=== PATIENT | female | born 1995 | race Caucasian/White ===

== ENCOUNTER 2017-03-23 20:40 | Emergency (ER) | payer BC ==
[2017-03-23 20:54] VITALS: BP 131/71
[2017-03-23] MEDS ORDERED: Cephalexin CAP* 500 MG PO ONE (21:02)
--- NOTE | 2017-03-23 21:18 | UC ---
Skin Complaint HPI - HPI Summary HPI Summary: DEVELOPED PIMPLE ABOVE LEFT EAR. TRIED TO POP IT, NOW IT IS GETTING RED AND TENDER AND GROWNING. LYMPHNODE ENLARGING BEHIND EAR TODAY. NO FEVER. NO DISCHARGE. - History of Current Complaint Chief Complaint: UCSkin Time Seen by Provider: 03/23/17 20:42 Stated Complaint: LESION BEHIND LEFT EAR Hx Obtained From: Patient Hx Last Menstrual Period: 02/18/17 Onset/Duration: Gradual Onset, Lasting Days, Still Present Skin Exposure Onset/Duration: Days Ago Onset Severity: Mild Current Severity: Moderate Location: Discrete - LEFT SCALP SUPERIOR TO LEFT EAR Character: Swelling, Redness, Raised, Painful Aggravating Factor(s): Nothing Alleviating Factor(s): Nothing Associated Signs & Symptoms: Positive: Tenderness, Red Streaks. Negative: Fever , Chills, Throat Tightening, Drainage Related History: Possible Reaction to: Environmental Exposure - Allergy/Home Medications Allergies/Adverse Reactions: Allergies Allergy/AdvReac Type Severity Reaction Status Date / Time Amoxicillin [From Augmentin] Allergy Nausea And Verified 03/23/17 20:54 Vomiting Clavulanic Acid Allergy Nausea And Verified 03/23/17 20:54 [From Augmentin] Vomiting Review of Systems Constitutional: Negative Skin: Other - ERYTHEMATOUS INDURATED AREA LEFT SCALP SUPERIOR TO LEFT EAR Eyes: Negative ENT: Negative Respiratory: Negative Cardiovascular: Negative Gastrointestinal: Negative Genitourinary: Negative Motor: Negative Neurovascular: Negative Musculoskeletal: Negative Neurological: Negative Psychological: Negative Is Patient Immunocompromised?: No All Other Systems Reviewed And Are Negative: Yes PMH/Surg Hx/FS Hx/Imm Hx Previously Healthy: Yes - Surgical History Surgical History: Yes Surgery Procedure, Year, and Place: SINUS SURGERY. T&A - Family History Known Family History: Positive: None - Social History Occupation: Student Lives: With Family Alcohol Use: Occasionally Substance Use Type: None Smoking Status (MU): Never Smoked Tobacco - Immunization History Most Recent Influenza Vaccination: JAN 2017 Physical Exam Triage Information Reviewed: Yes Appearance: Well-Appearing, No Pain Distress, Well-Nourished Vital Signs: Initial Vital Signs Temp 98.6 F 03/23/17 20:51 Pulse 79 03/23/17 20:51 Resp 16 03/23/17 20:51 BP 131/71 03/23/17 20:51 Pulse Ox 98 03/23/17 20:51 Vital Signs Reviewed: Yes Eye Exam: Normal ENT Exam: Normal ENT: Positive: Normal ENT inspection, Hearing grossly normal, Pharynx normal, TMs normal Dental Exam: Normal Neck: Positive: Supple, Tenderness @ - LMPHNODE POSTERIOR CERVICAL LN, Enlarged Nodes @ - POSTERIOR CERVICAL LN Respiratory Exam: Normal Respiratory: Positive: Chest non-tender, Lungs clear, Normal breath sounds, No respiratory distress, No accessory muscle use Cardiovascular Exam: Normal Cardiovascular: Positive: RRR, No Murmur, Pulses Normal, Brisk Capillary Refill Abdominal Exam: Normal Abdomen Description: Positive: Nontender, No Organomegaly Musculoskeletal Exam: Normal Musculoskeletal: Positive: Strength Intact, ROM Intact, No Edema Neurological Exam: Normal Psychological Exam: Normal Skin: Positive: Other - ERYTHEMATOUS INDURATED AREA LEFT SCALP SUPERIOR TO LEFT EAR Course/Dx - Differential Diagnoses - Skin Complaint Differential Diagnoses: Abscess, Cellulitis - Diagnoses Provider Diagnoses: CELLULITIS LEFT SCALP SUPERIOR TO LEFT EAR; LYMPHADENOPATHY Discharge - Discharge Plan Condition: Stable Disposition: HOME Prescriptions: Cephalexin CAP* [Keflex CAP*] 500 mg PO QID #40 cap Patient Education Materials: Cellulitis (ED), Lymphadenopathy (ED) Referrals: Non Staff,Doctor [Primary Care Provider] -
== END 2017-03-23 21:16 | disposition home or self-care (01) ==
LOC: UCCORT 20:40
DX: L03.811 Cellulitis of head [any part, except face] (principal); R59.1 Generalized enlarged lymph nodes; Z88.1 Allergy status to other antibiotic agents
CPT/HCPCS: 99212; A9270-GY; G0463

== ENCOUNTER 2017-07-26 11:03 | Emergency (ER) | payer BC ==
[2017-07-26 12:05] VITALS: BP 119/70
--- NOTE | 2017-07-26 12:18 | UC ---
Throat Pain/Nasal Leo HPI - HPI Summary HPI Summary: C/O URI symptoms x 3 days with congestion, sore throat, cough with coughing fits at night and some ear congestion. - History of Current Complaint Chief Complaint: UCRespiratory Stated Complaint: ST Hx Obtained From: Patient Hx Last Menstrual Period: 06/28/17 ?: No Onset/Duration: Sudden Onset, Lasting Days - 3, Still Present Severity: Moderate Pain Intensity: 6 Cough: Nonproductive Associated Signs & Symptoms: Positive: Dysphagia, Hoarseness, Nasal Discharge, Fever - Allergies/Home Medications Allergies/Adverse Reactions: Allergies Allergy/AdvReac Type Severity Reaction Status Date / Time MS Amoxicillin Allergy Nausea And Verified 07/26/17 11:56 [From Augmentin] Vomiting MS Clavulanic Acid Allergy Nausea And Verified 07/26/17 11:56 [From Augmentin] Vomiting PMH/Surg Hx/FS Hx/Imm Hx Previously Healthy: Yes - Surgical History Surgical History: Yes Surgery Procedure, Year, and Place: SINUS SURGERY. T&A - Family History Known Family History: Negative: Cardiac Disease, Hypertension, Diabetes - Social History Occupation: Student Lives: Dormitory/Roommates Alcohol Use: Occasionally Substance Use Type: None Smoking Status (MU): Never Smoked Tobacco Have You Smoked in the Last Year: No - Immunization History Most Recent Influenza Vaccination: JAN 2017 Review of Systems Constitutional: Fever ENT: Sore Throat, Ear Ache, Sinus Congestion Respiratory: Cough Is Patient Immunocompromised?: No All Other Systems Reviewed And Are Negative: Yes Physical Exam Triage Information Reviewed: Yes Appearance: No Pain Distress, Well-Nourished, Ill-Appearing Vital Signs: Initial Vital Signs Temp 98.6 F 07/26/17 11:58 Pulse 77 07/26/17 11:58 Resp 16 07/26/17 11:58 BP 119/70 07/26/17 11:58 Pulse Ox 99 07/26/17 11:58 Vital Signs Reviewed: Yes Eyes: Positive: Conjunctiva Clear ENT: Positive: Pharynx normal, Nasal congestion, TMs normal Neck exam: Normal Respiratory: Positive: Wheezing - expiratory wheeze with coughing Cardiovascular Exam: Normal Musculoskeletal Exam: Normal Neurological Exam: Normal Psychological Exam: Normal Skin Exam: Normal Throat Pain/Nasal Course/Dx - Differential Dx/Diagnosis Differential Diagnosis/HQI/PQRI: Pharyngitis, Sinusitis, Tonsillitis, URI Provider Diagnoses: Acute viral URI. Acute bronchospasm Discharge - Sign-Out/Discharge Documenting (check all that apply): Discharge - Discharge Plan Condition: Stable Disposition: HOME Prescriptions: predniSONE TAB* [Deltasone TAB*] 20 mg PO DAILY #18 tab Patient Education Materials: Upper Respiratory Infection (ED), Wheezing (ED), Prednisone (By mouth) Referrals: Non Staff,Doctor [Primary Care Provider] - Additional Instructions: NASAL SPRAYS AND DROPS: Afrin in the PUMP/ MIST bottle (Get generic 12 hours nasal decongestant spray). Tilt your head down and look at the floor while doing a strong sniff with the spray. Decongestant nasal sprays and drops often give dramatic relief from congestion. They are often recommended for patients with sinus infection to assist with sinus drainage. Persons with high blood pressure should consult the doctor before using these nasal sprays. Afrin and Rafael-Synephrine are common [id number] preparations. They should not be used for more than five days, as "rebound" congestion can occur - - the congestion flares as the drug wears off. A way of dealing with this rebound congestion problem is to medicate only one nostril each time, allowing the other nostril to recover from the medicine' s effects. When you no longer need the drug during the day, spray only one nostril each night. This helps you sleep well without severe rebound congestion. Call the doctor if you develop severe headache, palpitations, or chest pain. - Billing Disposition and Condition Condition: STABLE Disposition: HOME
== END 2017-07-26 12:28 | disposition home or self-care (01) ==
LOC: UCCORT 11:03
DX: J98.01 Acute bronchospasm (principal); J06.9 Acute upper respiratory infection, unspecified; Z88.0 Allergy status to penicillin; Z88.8 Allergy status to other drugs, medicaments and biological substances
CPT/HCPCS: 99212; G0463